=== PATIENT | male | born 2000 | race African-American/Black ===

== ENCOUNTER 2021-12-13 23:51 | Emergency (ER) | payer OTHER, SELFPAY ==
--- NOTE | ~2021-12-13 | CT_ITS ---
EXAMINATION: CT abdomen pelvis w con DATE: 12/14/2021 02:46 INDICATION: Right lower quadrant abdominal pain TECHNIQUE: Computed tomography (CT) of the abdomen and pelvis was performed with 100 mL Omnipaque-350 intravenous contrast. Automated exposure control and iterative reconstruction technique were employe d. The dose-length product was 523.51 mGy-cm. COMPARISON: None FINDINGS: Lung bases are clear. Heart size is normal. No pericardial or pleural effusion. Liver, gallbladder, s pleen, pancreas, bilateral adrenal glands and kidneys are normal. Bowels including the appendix are n ormal. Bladder is normal. No free intraperitoneal gas or fluid. No pathologically enlarged abdominal or pelvic lymphadenopathy. Bones are unremarkable. IMPRESSION: 1. No acute intra-abdominal/pelvic process. Specifically normal gallbladder and appendix. Reviewed, dictated and finalized at location A.
[2021-12-13 23:57] VITALS: BP 112/91; PULSE 125; RESP 18; TEMP 37.2; O2SAT 100
--- NOTE | 2021-12-14 01:32 | ED.ABDPAIN ---
HPI - Abdominal Pain General Chief Complaint: Abdominal Pain <MARK Canas Last Filed: 12/14/21 03:52> Stated Complaint: RLQ abd pain <MARK Canas Last Filed: 12/14/21 03:52> Time Seen by Provider: 12/14/21 01:24 <MARK Canas Last Filed: 12/14/21 03:52> Source: patient <MARK Canas Last Filed: 12/14/21 03:52> Mode of arrival: ambulatory <MARK Canas Last Filed: 12/14/21 03:52> Limitations: no limitations <MARK Canas Last Filed: 12/14/21 03:52> History of Present Illness HPI narrative: Patient is a 21-year-old male who presents to the ED with complaints of right lower quadrant pain x 5 days. Patient reports that pain is a constant ache with an intermittent sharp sensation. He has not tried anything for the pain since the pain began. He denies any other symptoms including fever, chills, nausea, vomiting, diarrhea, constipation, urinary symptoms, back pain. Patient mother at bedside reports there is a strong family history of gastric cancer. <MARK Canas Last Filed: 12/14/21 03:52> Related Data Home Medications: Home Medications Medication Instructions Recorded Confirmed No Home Medications 12/14/21 12/14/21 <Rosio Kinney PA-C - Last Filed: 12/14/21 03:52> Allergies/Adverse Reactions: Allergies Allergy/AdvReac Type Severity Reaction Status Date / Time No Known Allergies Allergy Verified 12/14/21 00:11 <MARK Canas Last Filed: 12/14/21 03:52> Review of Systems Review of Systems: CONSTITUTIONAL: Denies fever, chills, or sweats. CARDIOVASCULAR: Denies chest pain. RESPIRATORY: Denies cough or dyspnea. GASTROINTESTINAL: Reports right lower quadrant abdominal pain. Denies nausea, vomiting, constipation, or diarrhea. GENITOURINARY: Denies dysuria or hematuria. MUSCULOSKELETAL: Denies back pain, joint pain, or myalgia. NEUROLOGIC: Denies headache, numbness, or weakness. <Rosio Kinney PA-C - Last Filed: 12/14/21 03:52> All systems reviewed & are unremarkable except as noted in HPI and below <Rosio Kinney PA-C - Last Filed: 12/14/21 03:52> [facility] Past Medical History Medical History: Medical History (Updated 12/14/21 @ 03:46 by Rosio Kinney PA-C) Anxiety <Rosio Kinney PA-C - Last Filed: 12/14/21 03:52> Surgical History Surgical History: Surgical History (Updated 12/14/21 @ 01:34 by Rosio Kinney PA-C) History of inguinal hernia repair <Rosio Kinney PA-C - Last Filed: 12/14/21 03:52> Family History Family History: Family History (Updated 12/14/21 @ 01:35 by Rosio Kinney PA-C) Other Gastric cancer <Rosio Kinney PA-C - Last Filed: 12/14/21 03:52> Social History Social History: Social History (Updated 12/14/21 @ 01:35 by Rosio Kinney PA-C) Smoking status: Never smoker <Rosio Kinney PA-C - Last Filed: 12/14/21 03:52> Exam Narrative: GENERAL: Well appearing, well-nourished, non-toxic, in no acute distress. HEAD: Normocephalic, atraumatic. NECK: Supple. No adenopathy, no masses. RESPIRATORY: Airway patent, respirations nonlabored. Clear to auscultation bilaterally, no rales, rhonchi, wheezing. CARDIOVASCULAR: Regular rate and rhythm without murmurs, rubs, or gallops. Peripheral pulses 2+ and equal bilaterally. ABDOMINAL: Soft, no significant tenderness to palpation in RLQ or elsewhere in abdomen, nondistended, no hepatosplenomegaly. Normoactive BS. MUSCULOSKELETAL: Moves all extremities. Strength/ROM intact without gross deformities or TTP. No edema. SKIN: Warm, dry, normal color. No rashes. NEURO: A&O X3. Speech clear. Cranial nerves II-XII grossly intact. Steady gait. No ataxic movements. PSYCHIATRIC: Appropriate mood and affect. Normal interaction. <Rosio Kinney PA-C - Last Filed: 12/14/21 03:52> Course MASTER CHEF/PA Physician Supervision I did not see this patient nor was the care plan discuss
[2021-12-14] MEDS: SODIUM CHLORIDE 0.9% IV 1,000 ML 999 ML IV CONT (01:44)
[2021-12-14 01:50] LABS: Basophils Percent Auto 0.5 % (0.2-1.2); Eosinophils Percent Auto 0.7 % (0-4.4); Hematocrit 49.4 % (42.0-52.0); Hemoglobin 16.6 g/dL (14.0-18.0); Immature Granulocyte Absolute 0.01 K/mm3 (0.00-0.031); Immature Granulocyte Percent A 0.2 % (0-0.5); Lymphocytes Absolute Auto 2.25 K/mm3 (0.9-3.2); Lymphocytes Percent Auto 40.8 % (18.3-44.2); Mean Corpuscular HGB Conc 33.6 g/dl (32-36); Mean Corpuscular Hemoglobin 30.2 pg (26-34); Mean Corpuscular Volume 89.8 fl (80-100); Mean Platelet Volume 10.8 fl (7.4-10.4); Monocytes Absolute Auto 0.3 K/mm3 (0.1-0.6); Monocytes Percent Auto 5.6 % (2.6-8.5); Neutrophils Absolute Auto 2.9 K/mm3 (1.3-6.7); Neutrophils Percent Auto 52.2 % (45.5-73.1); Platelet Count Result 360 k/mm3 (150-375); White Blood Count 5.5 K/mm3 (4.5-10.0)
[2021-12-14 02:17] LABS: Add Urine Microscopic? NO; Appearance Urine Clear (Clear); Bilirubin Urine Negative (Negative); Blood Urine Negative (Negative); Color Urine Colorless (Yellow); Glucose Urine UA Negative (Negative); Ketones Urine Negative (Negative); Leukocyte Esterase Ur Negative LEU/UL (Negative); Nitrate Urine Negative (Negative); Protein Urine Negative (Negative); Urobilinogen Urine Negative mg/dL (<2.0)
[2021-12-14 02:20] LABS: Specific Grav Ur 1.001 (1.001-1.035)
[2021-12-14 02:21] LABS: Alanine Aminotransferase 18 U/L (4-50); Albumin Level 4.6 g/dL (3.5-5.1); Alkaline Phosphatase 53 U/L (38-126); Anion Gap 8 mmol/L (8-16); Aspartate Amino Transferase 35 U/L (17-59); Bilirubin,Total 0.3 mg/dL (0.2-1.3); Blood Urea Nitrogen 14 mg/dL (9-20); Calcium 9.3 mg/dL (8.4-10.2); Carbon Dioxide 27 mmol/L (22-30); Chloride 104 mmol/L (98-107); Estimated CRCL calculation 122 ml/min; Estimated Glomerular Filt Rate > 60; Glucose 116 mg/dL (65-110); Lipase 143 U/L (23-300); Potassium 3.8 mmol/L (3.4-5.0); Sodium 139 mmol/L (137-145)
[2021-12-14 03:20] VITALS: BP 107/76; PULSE 84; RESP 16; O2SAT 100
--- NOTE | 2021-12-14 03:23 | PC.NURSE ---
Assumed care of pt at this time, report taken from Brissa WYATT. Pt updated on POC.
== END 2021-12-14 04:16 | disposition home or self-care (01) ==
PROVIDERS: Physician Assistant; Emergency Provider Emergency Medicine
DX: R10.31 Right lower quadrant pain (principal)
CPT/HCPCS: 36415; 74177; 80053; 81003; 83690; 85025; 96361; 96374; 99284; J0131; J7030; Q9967